=== PATIENT | female | born 1995 | race American Indian/Alaskan Native ===

== ENCOUNTER 2016-04-18 22:54 | Emergency (ER) | payer SELFPAY ==
[2016-04-18 23:49] LABS: Basophils % (Auto) 0.4 % (0.0-1.8); Eosinophils % (Auto) 3.9 % (0.0-4.3); Hematocrit 33.9 % (30.3-42.9); Hemoglobin 11.5 gm/dl (10.1-14.3); Mean Corpuscular HGB Conc 34 % (30-34); Mean Corpuscular Hemoglobin 31 pg (28-32); Mean Corpuscular Volume 93 fl (79-97); Platelet Count 226 K/mm3 (140-440); Red Blood Count 3.66 M/mm3 (3.65-5.03); Red Cell Distribution Width 12.8 % (13.2-15.2); White Blood Count 11.1 K/mm3 (4.5-11.0)
[2016-04-18 23:58] LABS: BUN/Creatinine Ratio 18.57; Blood Urea Nitrogen 13 mg/dL (7-17); Calcium 8.9 mg/dL (8.4-10.2); Carbon Dioxide 23 mmol/L (22-30); Chloride 102.1 mmol/L (98-107); Glucose 114 mg/dL (65-100); Sodium 138 mmol/L (137-145)
[2016-04-19 00:13] LABS: Anion Gap 17 mmol/L
[2016-04-19] MEDS ORDERED: BENADRYL IV ONE (01:05)
[2016-04-19] MEDS ORDERED: REGLAN IV ONE (01:05)
[2016-04-19] MEDS ORDERED: TORADOL IV ONE (01:05)
[2016-04-19] MEDS ORDERED: NACL 0.9% 1000 ML 1,000 ML IV ONE (01:05)
--- NOTE | 2016-04-19 01:29 | Cat Scan Report ---
FINAL REPORT PROCEDURE: CT HEAD/BRAIN WO CON TECHNIQUE: Computerized tomography of the head was performed without contrast material. HISTORY: Headache, Preg test ordered COMPARISON: No prior studies are available for comparison. FINDINGS: Skull and scalp: Normal. Paranasal sinuses: There is moderate opacification of the ethmoid and left sphenoid sinuses. Slight opacification of the maxillary and right frontal sinuses is seen.. Ventricles and subarachnoid spaces: Normal. Cerebrum: No evidence of hemorrhage, acute infarction or mass . Cerebellum and brainstem: No evidence of hemorrhage, acute infarction or mass. Vasculature: Normal. Comments: None. IMPRESSION: There is no evidence of an acute intracranial process. Moderate sinusitis as described.
--- NOTE | 2016-04-19 01:44 | Emergency Department Report ---
ED Headache HPI - General Chief Complaint: Headache Stated Complaint: HEADACHE Time Seen by Provider: 04/19/16 00:59 Source: patient Exam Limitations: no limitations - History of Present Illness Initial Comments: 21-year-old female with no significant past medical history presents to the hospital complains of left-sided headache for the past 4 days. Headache is intermittent and became severe tonight. Patient is tearful with eyes closed and unable to qualify pain at this time. Positives rated 10/10 intensity. Positive sensitivity to light and blurred vision reported. No reports denies nausea, vomiting, recent injury, neck pain, focal numbness or weakness. Allergies/Adverse Reactions: Allergies No Known Allergies Allergy (Unverified 04/28/13 03:32) Home Medications: Ambulatory Orders Acetaminophen [Acetaminophen TAB] 325 mg PO Q6HR PRN #30 tablet 10/29/15 Multivitamin with Iron [Multivitamins with Iron] 1 each PO DAILY #30 tablet Norgestrel-Ethinyl Estradiol [Ynv-Rslrrijs-31 Tablet] 1 each PO DAILY #30 tablet 10/29/15 Doxycycline [Vibramycin CAP] 100 mg PO Q12HR #14 capsule 04/19/16 HYDROcodone/APAP 5-325 [[place] 5/325] 1 each PO Q6HR PRN #10 tablet 04/19/16 Pseudoephedrine [Sudafed] 60 mg PO BID PRN #20 tab 04/19/16 SUMAtriptan SUCCINATE [SUMAtriptan Succinate] 25 mg PO Q2HR PRN #10 tablet 04/19 ED Review of Systems ROS: Stated complaint: HEADACHE Other details as noted in HPI Comment: All other systems reviewed and negative Other: Constitutional: No fevers chills Eyes: As per HPI ENT: No ear pain or throat pain Neck: Denies pain Respiratory: Denies cough wheezing shortness of breath Cardiovascular: Denies chest pain, palpitations, syncope GI: Denies abdominal pain, nausea, vomiting, diarrhea : Denies dysuria, urinary frequency, or urgency Musculoskeletal: Denies back pain Skin: Denies rash, lesions, erythema Neurologic: As per HPI Psychiatric: Denies suicidal ideation, hallucinations ED Past Medical Hx - Past Medical History Previous Medical History?: No Hx Hypertension: No - Surgical History Past Surgical History?: No - Social History Smoking Status: Never Smoker Substance Use Type: None - Medications Home Medications: Home Medications Medication Instructions Recorded Confirmed Last Taken Type Acetaminophen [Acetaminophen TAB] 325 mg PO Q6HR PRN #30 tablet 10/29/15 Unknown Rx Multivitamin with Iron 1 each PO DAILY #30 tablet 10/29/15 Unknown Rx [Multivitamins with Iron] Norgestrel-Ethinyl Estradiol 1 each PO DAILY #30 tablet 10/29/15 Unknown Rx [Kwx-Ivdaihgb-91 Tablet] Doxycycline [Vibramycin CAP] 100 mg PO Q12HR #14 capsule 04/19/16 Unknown Rx HYDROcodone/APAP 5-325 [[place] 1 each PO Q6HR PRN #10 tablet 04/19/16 Unknown Rx 5/325] Pseudoephedrine [Sudafed] 60 mg PO BID PRN #20 tab 04/19/16 Unknown Rx SUMAtriptan SUCCINATE [SUMAtriptan 25 mg PO Q2HR PRN #10 tablet 04/19/16 Unknown Rx Succinate] ED Physical Exam - General Limitations: No Limitations - Other Other exam information: General: Limited cooperation due to distress secondary to pain Head exam: Atraumatic, normocephalic Eyes exam: Normal appearance, pupils equal reactive to light, extraocular movements intact. Bilateral puffy eyelids left slightly greater than the right ENT: Moist mucous membrane, normal oropharynx, nasal congestion Neck exam: Normal inspection, full range of motion, no meningismus nontender Respiratory exam: Clear to auscultation bilateral, no wheezes, rales, crackles Cardiovascular: Normal rate and rhythm, normal heart sounds Abdomen: Soft, nondistended, and nontender, with normal bowel sounds, no rebound, or guarding Extremity: Full range of motion normal inspection no deformity Back: Normal Inspection, full range of motion, no tenderness Neurologic: Alert, oriented x3, cranial nerves intact, no motor or sensory deficit Psychiatric: normal affect, normal mood Skin: Warm, dry, intact ED Course Vital Signs 04/18/16 04/19/16 04/19/16 23:00 01:28 02:48 Temperature 98.2 F 98.3 F Pulse Rate 59 L 72 Respiratory 24 24 18 Rate Blood Pressure 107/68 Blood Pressure 100/64 [Left] O2 Sat by Pulse 100 98 99 Oximetry - Reevaluation(s) Reevaluation #1: 04/19/16 01:45 Patient received Benadryl, Toradol, and Reglan in the ED normal saline initiated ED Medical Decision Making - Lab Data Result diagrams: 04/18/16 23:37 04/18/16 23:37 Lab Results 04/18/16 04/18/16 04/18/16 Range/Units 23:37 23:37 23:37 WBC 11.1 H (4.5-11.0) K/mm3 RBC 3.66 (3.65-5.03) M/mm3 Hgb 11.5 (10.1-14.3) gm/dl Hct 33.9 (30.3-42.9) % MCV 93 (79-97) fl MCH 31 (28-32) pg MCHC 34 (30-34) % RDW 12.8 L (13.2-15.2) % Plt Count 226 (140-440) K/mm3 Lymph % (Auto) 24.3 (13.4-35.0) % [place] % (Auto) 7.1 (0.0-7.3) % Eos % (Auto) 3.9 (0.0-4.3) % Baso % (Auto) 0.4 (0.0-1.8) % Lymph # 2.7 (1.2-5.4) K/mm3 [place] # 0.8 (0.0-0.8) K/mm3 Eos # 0.4 (0.0-0.4) K/mm3 Baso # 0.0 (0.0-0.1) K/mm3 Seg Neutrophils % 64.3 (40.0-70.0) % Seg Neutrophils # 7.1 (1.8-7.7) K/mm3 Sodium 138 (137-145) mmol/L Potassium 4.0 (3.6-5.0) mmol/L Chloride 102.1 (98-107) mmol/L Carbon Dioxide 23 (22-30) mmol/L Anion Gap 17 mmol/L BUN 13 (7-17) mg/dL Creatinine 0.7 (0.7-1.2) mg/dL Estimated GFR > 60 ml/min BUN/Creatinine Ratio 18.57 % Glucose 114 H (65-100) mg/dL Calcium 8.9 (8.4-10.2) mg/dL HCG, Qual Negative (Negative) - Radiology Data Radiology results: report reviewed CT head: No acute intercranial process. Moderate sinusitis of the left ethmoid , left sphenoid, maxillary and right frontal sinuses. - Medical Decision Making Patient had improvement in pain medication is the longer tearful, can Open her eyes and is comfortable. Patient be discharged with pain medication and antibiotics and decongested for sinusitis - Differential Diagnosis sinusitis, cluster headache, migraine headache, ICH, mass Critical Care Time: No Critical care attestation.: If time is entered above; I have spent that time in minutes in the direct care of this critically ill patient, excluding procedure time. ED Disposition Clinical Impression: Sinusitis Migraine headache Qualifiers: Migraine type: unspecified Status migrainosus presence: without status migrainosus Intractability: not intractable Qualified Code(s): G43.909 - Migraine, unspecified, not intractable, without status migrainosus Disposition: DISCHARGED TO HOME OR SELFCARE Is pt being admited?: No Does the pt Need Aspirin: No Condition: Stable Instructions: Migraine Headache (ED), Sinusitis (ED) Additional Instructions: Take the medication as prescribed. Return if symptoms worsen. Follow with the neurologist provided. Use to good Rx card provided to make medications more affordable. You may first try the Imitrex/sumatriptan first for your migraine-type of pain. If Pain persists you may take the narcotic hydrocodone as prescribed. Prescriptions: Doxycycline [Vibramycin CAP] 100 mg PO Q12HR #14 capsule HYDROcodone/APAP 5-325 [[place] 5/325] 1 each PO Q6HR PRN #10 tablet PRN Reason: Pain Pseudoephedrine [Sudafed] 60 mg PO BID PRN #20 tab PRN Reason: Nasal Congestion SUMAtriptan SUCCINATE [SUMAtriptan Succinate] 25 mg PO Q2HR PRN #10 tablet PRN Reason: Headache Referrals: PRIMARY CARE,MD [Primary Care Provider] - 3-5 Days LOLA JUAN MD [Staff Physician] - 3-5 Days (Neurologist) Time of Disposition: 03:45
[2016-04-19 02:56] VITALS: BP 100/64
== END 2016-04-19 04:08 | disposition home or self-care (01) ==
LOC: ED 22:54
DX: J32.9 Chronic sinusitis, unspecified (principal); G43.909 Migraine, unspecified, not intractable, without status migrainosus
CPT/HCPCS: 36415; 70450; 80048; 84703; 85025; 96361; 96374; 96375; 99284; J1200; J1885; J2765; J7030

== ENCOUNTER 2016-04-19 21:39 | Emergency (ER) | payer SELFPAY ==
[2016-04-19 21:55] VITALS: BP 115/63
== END 2016-04-19 21:55 | disposition left against medical advice (07) ==
LOC: ED 21:39
DX: G43.909 Migraine, unspecified, not intractable, without status migrainosus (principal); Z53.21 Procedure and treatment not carried out due to patient leaving prior to being seen by health care provider

== ENCOUNTER 2018-02-09 18:48 | Emergency (ER) | payer SELFPAY ==
[2018-02-09 19:16] VITALS: BP 116/55
[2018-02-09] MEDS ORDERED: BENADRYL PO ONE (19:22)
[2018-02-09] MEDS ORDERED: DELTASONE PO ONE (19:22)
--- NOTE | 2018-02-09 19:27 | Emergency Department Report ---
ED Rash HPI - HPI Chief Complaint: Skin Rash Stated Complaint: HIVES ALL OVER Time Seen by Provider: 02/09/18 19:22 Duration: 2 Days Location: Neck, Chest, Back, Abdomen, Upper Extremities, Lower Extremities Suspected Cause: Other (eczema ) Rash Symptoms: Yes Itching, No Facial Swelling, No Tongue/Oral Swelling, No Breathing Difficulties, No Choking Sensation, No Wheezing/Dyspnea, No Peeling, No Blistering, No Fever, No Lightheaded, No Malaise, No Myalgias Severity: moderate ED Review of Systems ROS: Stated complaint: HIVES ALL OVER Other details as noted in HPI Constitutional: denies: chills, fever Eyes: denies: eye pain, eye discharge, vision change ENT: denies: ear pain, throat pain Respiratory: denies: cough, shortness of breath, wheezing Cardiovascular: denies: chest pain, palpitations Endocrine: no symptoms reported Gastrointestinal: denies: abdominal pain, nausea, diarrhea Genitourinary: denies: urgency, dysuria, discharge Musculoskeletal: denies: back pain, joint swelling, arthralgia Skin: rash, pruritus Neurological: denies: headache, weakness, paresthesias Psychiatric: denies: anxiety, depression Hematological/Lymphatic: denies: easy bleeding, easy bruising ED Past Medical Hx - Past Medical History Hx Hypertension: No Hx Headaches / Migraines: Yes - Surgical History Past Surgical History?: No - Social History Smoking Status: Never Smoker Substance Use Type: None - Medications Home Medications: Home Medications Medication Instructions Recorded Confirmed Last Taken Type Acetaminophen [Acetaminophen TAB] 325 mg PO Q6HR PRN #30 tablet 10/29/15 Unknown Rx Multivitamin with Iron 1 each PO DAILY #30 tablet 10/29/15 Unknown Rx [Multivitamins with Iron] Norgestrel-Ethinyl Estradiol 1 each PO DAILY #30 tablet 10/29/15 Unknown Rx [Viu-Ssgzpxal-56 Tablet] Doxycycline [Vibramycin CAP] 100 mg PO Q12HR #14 capsule 04/19/16 Unknown Rx HYDROcodone/APAP 5-325 [[place] 1 each PO Q6HR PRN #10 tablet 04/19/16 Unknown Rx 5/325] Pseudoephedrine (Nf) [Sudafed (Nf)] 60 mg PO BID PRN #20 tab 04/19/16 Unknown Rx SUMAtriptan succinate [SUMAtriptan 25 mg PO Q2HR PRN #10 tablet 04/19/16 Unknown Rx Succinate] Triamcinolone Aceton 0.1% (Nf) 1 applic TP BID #1 tube 02/09/18 Unknown Rx [Kenalog (NF)] diphenhydrAMINE [Benadryl CAP] 25 mg PO Q6HR PRN #30 capsule 02/09/18 Unknown Rx predniSONE [Deltasone] 40 mg PO QDAY 5 Days #10 tab 02/09/18 Unknown Rx Rash Exam - Exam General: Vital signs noted. No distress. Alert and acting appropriately. HEENT: No Periorbital Edema, No Conjuctival Injection, No Chemosis, No Perioral Edema, No Tongue Edema, No Uvular Edema, No Compromised Airway, No Drooling Lungs: Yes Good Air Exchange (Normal Breath Sounds), No Wheezes, No Ronchi, No Stridor, No Cough, No Labored Respirations, No Retractions, No Use of Accessory Muscles, No Other Abnormal Lung Sounds Heart: Yes Regular, No Murmur Skin: Yes Urticarial Rash (bilat arm and left folds check neck eczema ), Yes Excoriations, Yes Erythema, Yes Encrustations Other: Positive: Abdomen Normal, Neurologic Normal, Musculoskeletal Normal ED Course Vital Signs 02/09/18 19:11 Temperature 97.8 F Pulse Rate 66 Respiratory 16 Rate Blood Pressure 116/55 O2 Sat by Pulse 99 Oximetry ED Medical Decision Making - Medical Decision Making this is a simple eczema exacerbation plan triamcinolone twice a day prednisone 5 day burst Benadryl or Atarax when necessary for itching patient will follow with PCP in 2-3 days patient verbalized agreement and understanding with same patient will be DC'd home in stable condition at this time Critical care attestation.: If time is entered above; I have spent that time in minutes in the direct care of this critically ill patient, excluding procedure time. ED Disposition Clinical Impression: Eczema Qualifiers: Eczema type: unspecified Qualified Code(s): L30.9 - Dermatitis, unspecified Disposition: DC-01 TO HOME OR SELFCARE Is pt being admited?: No Does the pt Need Aspirin: No Condition: Good Instructions: Eczema (ED) Prescriptions: diphenhydrAMINE [Benadryl CAP] 25 mg PO Q6HR PRN #30 capsule PRN Reason: Itching predniSONE [Deltasone] 40 mg PO QDAY 5 Days #10 tab Triamcinolone Aceton 0.1% (Nf) [Kenalog (NF)] 1 applic TP BID #1 tube Referrals: [facility] [Outside] - 3-5 Days Forms: Work/School Release Form(ED) Time of Disposition: 19:34
== END 2018-02-09 19:42 | disposition home or self-care (01) ==
LOC: ED 18:48
DX: L30.9 Dermatitis, unspecified (principal); G43.909 Migraine, unspecified, not intractable, without status migrainosus
CPT/HCPCS: 99282; J7512

== ENCOUNTER 2019-05-28 07:41 | Emergency (ER) | payer SELFPAY ==
[2019-05-28 07:56] VITALS: BP 113/64
--- NOTE | 2019-05-28 08:49 | Emergency Department Report ---
Chief Complaint: Sore Throat Stated Complaint: THROAT PAIN 2 DAYS Time Seen by Provider: 05/28/19 08:11 - HPI History of Present Illness: 24-year-old -[place] female presents to the emergency room for 2 day history of sore throat. Patient reports that she taken Aleve p.m. without much relief. Patient denies fever chills cough. She admits to pain with swallowing. Patient denies any past medical history currently takes no medications on a daily basis and has no known drug allergies. - Exam Vital Signs: Vital Signs 05/28/19 07:55 Temperature 98.6 F Pulse Rate 97 H Respiratory 16 Rate Blood Pressure 113/64 O2 Sat by Pulse 100 Oximetry Physical Exam: Patient's alert and oriented 3 no acute distress nontoxic in appearance Mouth: Oral mucosa is moist tonsils are her perfectly no exudate mild erythematous patent airway MSE screening note: Focused history and physical exam performed. Due to findings the following was ordered: ED Disposition for MSE Disposition: MED SCREENING EXAM-LEFT Is pt being admited?: No Does the pt Need Aspirin: No Condition: Stable Additional Instructions: Continue taking ibuprofen or Aleve for pain management. Follow up at urgent care your primary care provider. Referrals: MADI ALCANTARA MD [Primary Care Provider] - 3-5 Days GEMMA GONZÁLES MD [Staff Physician] - 3-5 Days
== END 2019-05-28 09:02 | disposition left against medical advice (07) ==
LOC: ED 07:41
DX: J02.9 Acute pharyngitis, unspecified (principal)
CPT/HCPCS: 99281

== ENCOUNTER 2020-02-04 07:06 | Emergency (ER) | payer SELFPAY ==
[2020-02-04] MEDS ORDERED: ONDANSETRON 4 MG/2 ML INJ ONE (07:31)
[2020-02-04 07:45] LABS: Basophils # (Auto) 0.1 K/mm3 (0.0-0.1); Basophils % (Auto) 0.7 % (0.0-1.8); Eosinophils # (Auto) 0.1 K/mm3 (0.0-0.4); Eosinophils % (Auto) 0.6 % (0.0-4.3); Hematocrit 35.6 % (30.3-42.9); Hemoglobin 12.6 gm/dl (10.1-14.3); Lymphocytes # (Auto) 2.6 K/mm3 (1.2-5.4); Lymphocytes % (Auto) 25.8 % (13.4-35.0); Mean Corpuscular HGB Conc 36 % (30-34); Mean Corpuscular Volume 92 fl (79-97); Monocytes # (Auto) 0.5 K/mm3 (0.0-0.8); Platelet Count 285 K/mm3 (140-440); Red Blood Count 3.88 M/mm3 (3.65-5.03); Red Cell Distribution Width 12.5 % (13.2-15.2)
[2020-02-04] MEDS ORDERED: HYDROmorphone 1 MG/1 ML INJ IV ONE (07:51)
[2020-02-04] MEDS ORDERED: ONDANSETRON 4 MG/2 ML INJ IV ONE ×2 (07:51→08:08)
[2020-02-04] MEDS ORDERED: SODIUM CHLORIDE 0.9% 1000 ML 1,000 ML IV ONE ×2 (07:55→09:14)
--- NOTE | 2020-02-04 08:00 | Emergency Department Report ---
ED Abdominal Pain HPI - General Chief Complaint: Abdominal Pain Stated Complaint: ABD PAIN Time Seen by Provider: 02/04/20 07:50 Source: patient Mode of arrival: Wheelchair Limitations: No Limitations - History of Present Illness Initial Comments: 24-year-old female the past medical history of migraines presents to the hospital complains of sudden onset of severe abdominal pain since 3 AM. Pain woke her up from sleep. Patient comes in in significant distress secondary to pain with 10 out of 10 pain. Positive nausea and vomiting reported. Patient complains of pain to her lower abdomen. No reports of hematemesis, fever, diarrhea, urinary symptoms, or past surgical history. Patient reports she did have her menstrual cycle last month. She also states she has been drinking a lot recently celebrating her friend's birthday - Related Data Previous Rx's Medication Instructions Recorded Last Taken Type Acetaminophen [Acetaminophen TAB] 325 mg PO Q6HR PRN #30 tablet 10/29/15 Unknown Rx Multivitamin with Iron 1 each PO DAILY #30 tablet 10/29/15 Unknown Rx [Multivitamins with Iron] Norgestrel-Ethinyl Estradiol 1 each PO DAILY #30 tablet 10/29/15 Unknown Rx [Vie-Uwbrvcoy-74 Tablet] DOXYCYCLINE Hyclate [Vibramycin 100 mg PO Q12HR #14 capsule 04/19/16 Unknown Rx CAP] Pseudoephedrine (Nf) [Sudafed (Nf)] 60 mg PO BID PRN #20 tab 04/19/16 Unknown Rx SUMAtriptan succinate [SUMAtriptan 25 mg PO Q2HR PRN #10 tablet 04/19/16 Unknown Rx Succinate] Triamcinolone Aceton 0.1% (Nf) 1 applic TP BID #1 tube 02/09/18 Unknown Rx [Kenalog (NF)] diphenhydrAMINE [Benadryl CAP] 25 mg PO Q6HR PRN #30 capsule 02/09/18 Unknown Rx predniSONE [Deltasone] 40 mg PO QDAY 5 Days #10 tab 02/09/18 Unknown Rx HYDROcodone/APAP 5-325 [[place] 1 each PO Q6HR PRN #10 tablet 02/04/20 Unknown Rx 5-325 mg TAB] Ibuprofen [Motrin] 600 mg PO Q8H PRN #20 tablet 02/04/20 Unknown Rx Nitrofurantoin [place]/M-Cryst 100 mg PO Q12HR #10 capsule 02/04/20 Unknown Rx [Macrobid CAP] Ondansetron [Zofran Odt] 4 mg PO Q8HR #20 tab.rapdis 02/04/20 Unknown Rx Allergies Allergy/AdvReac Type Severity Reaction Status Date / Time No Known Allergies Allergy Verified 02/09/18 19:11 ED Review of Systems ROS: Stated complaint: ABD PAIN Other details as noted in HPI Comment: All other systems reviewed and negative ED Past Medical Hx - Past Medical History Previous Medical History?: Yes Hx Hypertension: No Hx Headaches / Migraines: Yes - Social History Smoking Status: Never Smoker Substance Use Type: Alcohol - Medications Home Medications: Home Medications Medication Instructions Recorded Confirmed Last Taken Type Acetaminophen [Acetaminophen TAB] 325 mg PO Q6HR PRN #30 tablet 10/29/15 Unknown Rx Multivitamin with Iron 1 each PO DAILY #30 tablet 10/29/15 Unknown Rx [Multivitamins with Iron] Norgestrel-Ethinyl Estradiol 1 each PO DAILY #30 tablet 10/29/15 Unknown Rx [Yxb-Oajmydcm-90 Tablet] DOXYCYCLINE Hyclate [Vibramycin 100 mg PO Q12HR #14 capsule 04/19/16 Unknown Rx CAP] Pseudoephedrine (Nf) [Sudafed (Nf)] 60 mg PO BID PRN #20 tab 04/19/16 Unknown Rx SUMAtriptan succinate [SUMAtriptan 25 mg PO Q2HR PRN #10 tablet 04/19/16 Unknown Rx Succinate] Triamcinolone Aceton 0.1% (Nf) 1 applic TP BID #1 tube 02/09/18 Unknown Rx [Kenalog (NF)] diphenhydrAMINE [Benadryl CAP] 25 mg PO Q6HR PRN #30 capsule 02/09/18 Unknown Rx predniSONE [Deltasone] 40 mg PO QDAY 5 Days #10 tab 02/09/18 Unknown Rx HYDROcodone/APAP 5-325 [[place] 1 each PO Q6HR PRN #10 tablet 02/04/20 Unknown Rx 5-325 mg TAB] Ibuprofen [Motrin] 600 mg PO Q8H PRN #20 tablet 02/04/20 Unknown Rx Nitrofurantoin [place]/M-Cryst 100 mg PO Q12HR #10 capsule 02/04/20 Unknown Rx [Macrobid CAP] Ondansetron [Zofran Odt] 4 mg PO Q8HR #20 tab.rapdis 02/04/20 Unknown Rx ED Physical Exam - General Limitations: No Limitations - Other Other exam information: General: Positive distress secondary to pain Head: Atraumatic Eyes: normal appearance ENT: Moist mucous membranes Neck: Normal appearance, no midline tenderness Chest: Clear to auscultation bilaterally CV: Regular rate and rhythm Abdomen: Soft, normal bowel sounds, mid epigastric abdominal tenderness without rebound or guarding Back: Normal inspection Extremity: Normal inspection, full range of motion Neuro: Alert O x 3, no facial asymmetry, speech clear, no gross motor sensory deficit Psych: Appropriate behavior Skin: No rash ED Course Vital Signs 02/04/20 02/04/20 02/04/20 07:17 07:30 08:00 Temperature 99.2 F Pulse Rate 55 L 47 L Respiratory 26 H 10 L Rate Blood Pressure 106/62 Blood Pressure 115/79 [Right] O2 Sat by Pulse 97 100 Oximetry 02/04/20 02/04/20 02/04/20 08:25 08:53 09:01 Temperature Pulse Rate 47 L 58 L 46 L Respiratory 11 L 16 16 Rate Blood Pressure 106/62 121/74 Blood Pressure 108/68 [Right] O2 Sat by Pulse 100 97 99 Oximetry ED Medical Decision Making - Lab Data Result diagrams: 02/04/20 07:28 02/04/20 07:28 - Radiology Data Radiology results: report reviewed CT ABDOMEN AND PELVIS WITH CONTRAST HISTORY: Nausea, vomiting, mid abdominal pain COMPARISON: None. TECHNIQUE: Axial CT images were obtained through the abdomen and pelvis after 100 cc of Omnipaque 300 intravenously. Sagittal and coronal reformatted images. All CT scans at this location are performed using CT dose reduction for ALARA by means of automated exposure control. FINDINGS: CT ABDOMEN: Lung Bases: Clear. Liver: No significant abnormality. Biliary: No significant abnormality. Spleen: No significant abnormality. Unenlarged. Pancreas: No significant abnormality. Adrenals: No significant abnormality. Kidneys: No significant abnormality. Lymphatics: No lymphadenopathy. Vasculature: No significant abnormality. Bowel/Peritoneum: Mild circumferential thickening of the colon is suspected suggesting a nonspecific colitis. The stomach, small bowel loops and appendix are unremark able. No evidence for free fluid, free air or abscess. CT PELVIS: : The uterus is mildly lobular and heterogeneous consistent with mild uterine fibroid disease. A 2.4 cm right ovarian cyst is identified. The left ovary and bladder are unremarkable. Osseous Structures: No significant abnormality. Additional Findings: None IMPRESSION: Findings consistent with a mild nonspecific colitis. Mild uterine fibroid disease. 2.4 cm right ovarian cyst. - Medical Decision Making Patient feeling better with ED treatment of Dilaudid, Zofran, IV fluids. UA suggestive of UTI therefore Rocephin provided. Patient having to stay her menstrual cycle started while here in the ED therefore it could be contaminated. Patient informed she has incidental finding of uterine fibroids which was new to her. Patient will be treated symptomatically for nausea/vomiting, pain and to provide antibiotic for possible UTI. Patient is tolerating p.o. prior to discharge and tolerated p.o. potassium for mild hypokalemia. CT also suggestive nonspecific colitis. Patient denies diarrhea. Critical Care Time: No Critical care attestation.: If time is entered above; I have spent that time in minutes in the direct care of this critically ill patient, excluding procedure time. ED Disposition Clinical Impression: Abdominal pain, Nausea and vomiting, UTI (urinary tract infection), Uterine fibroid Disposition: - TO HOME OR SELFCARE Is pt being admited?: No Does the pt Need Aspirin: No Condition: Stable Instructions: Abdominal Pain (ED), Acute Nausea and Vomiting (ED), Urinary Tract Infection in Women (ED), Uterine Fibroids (ED) Additional Instructions: Take the medication as prescribed. Follow-up with your doctor or doctor/clinic provided. Return if symptoms worsen as indicated by your discharge instructions. Prescriptions: Nitrofurantoin [place]/M-Cryst [Macrobid CAP] 100 mg PO Q12HR #10 capsule Ibuprofen [Motrin] 600 mg PO Q8H PRN #20 tablet PRN Reason: Pain HYDROcodone/APAP 5-325 [[place] 5-325 mg TAB] 1 each PO Q6HR PRN #10 tablet PRN Reason: Pain Ondansetron [Zofran Odt] 4 mg PO Q8HR #20 tab.rapdis Referrals: PRIMARY CARE, [Primary Care Provider] - 3-5 Days PIERCE PAN JR, MD [Staff Physician] - 3-5 Days (prosecuting attorney ) [facility] [Provider Group] - 3-5 Days Time of Disposition: 13:11
[2020-02-04 08:06] LABS: Alanine Aminotransferase 16 units/L (7-56); Albumin 4.8 g/dL (3.9-5); BUN/Creatinine Ratio 10; Blood Urea Nitrogen 8 mg/dL (7-17); Calcium 9.5 mg/dL (8.4-10.2); Hemolysis Index 9
--- NOTE | 2020-02-04 08:45 | Cat Scan Report ---
CT ABDOMEN AND PELVIS WITH CONTRAST HISTORY: Nausea, vomiting, mid abdominal pain COMPARISON: None. TECHNIQUE: Axial CT images were obtained through the abdomen and pelvis after 100 cc of Omnipaque 300 intravenously. Sagittal and coronal reformatted images. All CT scans at this location are performed using CT dose reduction for ALARA by means of automated exposure control. FINDINGS: CT ABDOMEN: Lung Bases: Clear. Liver: No significant abnormality. Biliary: No significant abnormality. Spleen: No significant abnormality. Unenlarged. Pancreas: No significant abnormality. Adrenals: No significant abnormality. Kidneys: No significant abnormality. Lymphatics: No lymphadenopathy. Vasculature: No significant abnormality. Bowel/Peritoneum: Mild circumferential thickening of the colon is suspected suggesting a nonspecific colitis. The stomach, small bowel loops and appendix are unremarkable. No evidence for free fluid, fr ee air or abscess. CT PELVIS: : The uterus is mildly lobular and heterogeneous consistent with mild uterine fibroid disease. A 2. 4 cm right ovarian cyst is identified. The left ovary and bladder are unremarkable. Osseous Structures: No significant abnormality. Additional Findings: None IMPRESSION: Findings consistent with a mild nonspecific colitis. Mild uterine fibroid disease. 2.4 cm right ovarian cyst. Signer Name: Marcin Britton Jr, MD Signed: 02/04/2020 8:41 AM Workstation Name: [id number]
[2020-02-04] MEDS ORDERED: POTASSIUM CHLORIDE ER 20 MEQ TAB PO ONE (10:09)
[2020-02-04 10:28] LABS: Bacteria,Urine 1+ /HPF (Negative); Bilirubin,Urine NEG (Negative); Blood,Urine LG (Negative); Color,Urine Yellow (Yellow); Mucus,Urine FEW /HPF; Urobilinogen,Urine < 2.0 mg/dL (<2.0)
[2020-02-04] MEDS ORDERED: cefTRIAXone/NS 1 GM/50 ML 1 GM/50 ML BAG IV ONE (10:38)
[2020-02-04 13:27] VITALS: BP 112/52
== END 2020-02-04 13:28 | disposition home or self-care (01) ==
LOC: ED 07:06
DX: N39.0 Urinary tract infection, site not specified (principal); D25.9 Leiomyoma of uterus, unspecified; G43.909 Migraine, unspecified, not intractable, without status migrainosus; Z79.899 Other long term (current) drug therapy
CPT/HCPCS: 36415; 74177; 80053; 81001; 83690; 83735; 84703; 85025; 87086; 96361; 96365; 96375; 96376; 99284; J0696; J1170; J2405; J7030; Q9967